=== PATIENT | female | born 1965 | race African-American/Black ===

== ENCOUNTER 2018-11-27 10:53 | Day surgery (SDC) | payer OTHER ==
[2018-11-27] MEDS ORDERED: LISI-167 PO (11:35)
[2018-11-27] MEDS ORDERED: LINA145C PO (11:35)
[2018-11-27] MEDS ORDERED: OMEP40CA6 PO (11:35)
[2018-11-27] MEDS ORDERED: ONABOTULINUMTOXINA 100 UNITS ONE (11:43)
[2018-11-27 12:15] LABS: ALANINE AMINOTRANSFERASE 33 U/L (12-78); ALBUMIN 4.1 g/dL (3.4-5.0); ANION GAP 7 mmol/L (5-15); CALCIUM 9.3 mg/dL (8.5-10.1); CHLORIDE 110 mmol/L (98-107); CREATININE 1.01 mg/dL (0.55-1.02)
[2018-11-27 12:17] LABS: ALKALINE PHOSPHATASE 97 U/L (45-117); BILIRUBIN,TOTAL 0.3 mg/dL (0.2-1.0); TOTAL PROTEIN 8.5 g/dL (6.4-8.2)
[2018-11-27] MEDS ORDERED: PROMETHAZINE 25 MG/ML, 1ML IV PRN (14:00)
[2018-11-27] MEDS ORDERED: ACETAMINOPHEN 325 MG TABLET PO PRN (14:00)
[2018-11-27] MEDS ORDERED: ONDANSETRON 2MG/ML, 2ML IV PRN (14:00)
[2018-11-27] MEDS ORDERED: PROMETHAZINE 25 MG SUPP PR PRN (14:00)
[2018-11-27] MEDS ORDERED: PROMETHAZINE 12.5 MG SUPP PR PRN (14:00)
[2018-11-27] MEDS ORDERED: ONDANSETRON ODT 8 MG PO PRN (14:00)
[2018-11-27] MEDS ORDERED: MIDAZOLAM 1 MG/ML, 2ML IV PRN (14:00)
[2018-11-27] MEDS ORDERED: FENTANYL PF 100 MCG/2ML IV PRN (14:00)
[2018-11-27] MEDS ORDERED: MEPERIDINE/PF 25MG/0.5ML IVPush PRN (14:00)
[2018-11-27] MEDS ORDERED: DIPHENHYDRAMINE 50 MG/ML, 1ML IVPush PRN (14:00)
[2018-11-27] MEDS ORDERED: EPHEDRINE 50 MG/ML, 1ML IM PRN (14:00)
[2018-11-27] MEDS ORDERED: PROPOFOL 10 MG/ML, 20ML ONE (14:52)
[2018-11-27] MEDS ORDERED: PROPOFOL 10 MG/ML, 50ML ONE (14:52)
== END 2018-11-27 15:25 | disposition home or self-care (01) ==
LOC: OUT 10:53
PROVIDERS: ATTEND Internal Medicine Gastroenterology
DX: K31.1 Adult hypertrophic pyloric stenosis (principal); K31.7 Polyp of stomach and duodenum; K21.9 Gastro-esophageal reflux disease without esophagitis; J45.909 Unspecified asthma, uncomplicated; F32.9 Major depressive disorder, single episode, unspecified; G35 Multiple sclerosis; Z98.890 Other specified postprocedural states; Z79.899 Other long term (current) drug therapy; Z88.8 Allergy status to other drugs, medicaments and biological substances; Z72.89 Other problems related to lifestyle
CPT/HCPCS: 36415; 43236; 43239; 43245; 80053; 81025; 88305; C1725; J0585; J2704